=== PATIENT | female | born 1975 | race Caucasian/White ===

== ENCOUNTER 2020-10-20 09:44 | Outpatient (CLI) | payer OTHER ==
--- NOTE | 2020-10-20 14:27 | MRI ---
MRI OF THE LEFT KNEE PERFORMED WITHOUT CONTRAST ENHANCEMENT: 10/20/20 HISTORY: Left knee pain. The anterior and posterior cruciate ligaments are intact. The medial meniscus is normal in shape and appearance. There is a small free edge tear of the body re gion of the medial meniscus. The medial as well as lateral collateral ligaments and iliotibial band regions are unremarkable. Patellar articular cartilage shows some grade IV chondromalacia change involving the lateral facet an d subchondral marrow edema change along the superior articular surface. The medial and lateral patell ar retinaculum and quadriceps and patellar tendons are normal. IMPRESSION: 1. Small free edge tear of the body of the lateral meniscus. 2. 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 Subchondral edema changes seen associated with this. POS: [facility]
== END 2020-10-20 09:45 | disposition home or self-care (01) ==
LOC: BICMRI 09:44
PROVIDERS: ATTEND Orthopaedic Surgery
DX: M17.12 Unilateral primary osteoarthritis, left knee (principal); S83.282A Other tear of lateral meniscus, current injury, left knee, initial encounter; M94.262 Chondromalacia, left knee